=== PATIENT | female | born 2005 | race Two or more races ===

== ENCOUNTER 2024-11-09 10:25 | Outpatient (CLI) | payer OTHER | END 2024-11-09 10:27 | disposition home or self-care (01) | LOC: PRENATAL 10:25 | PROVIDERS: ATTEND Obstetrics & Gynecology Maternal & Fetal Medicine | DX: O36.80X0 Pregnancy with inconclusive fetal viability, not applicable or unspecified (principal); Z36.82 Encounter for antenatal screening for nuchal translucency; O34.30 Maternal care for cervical incompetence, unspecified trimester; Z3A.13 13 weeks gestation of pregnancy ==

== ENCOUNTER 2024-12-20 08:07 | Outpatient (CLI) | payer OTHER | END 2024-12-20 08:09 | disposition home or self-care (01) | LOC: PRENATAL 08:07 | PROVIDERS: ATTEND Obstetrics & Gynecology Maternal & Fetal Medicine | DX: O44.00 Complete placenta previa NOS or without hemorrhage, unspecified trimester (principal); Z3A.20 20 weeks gestation of pregnancy ==

== ENCOUNTER → 2025-03-14 11:01 | Outpatient (CLI) | payer OTHER | END | disposition home or self-care (01) | LOC: PRENATAL 11:01 | PROVIDERS: ATTEND Obstetrics & Gynecology Maternal & Fetal Medicine | DX: O26.849 Uterine size-date discrepancy, unspecified trimester (principal); O36.8199 Decreased fetal movements, unspecified trimester, other fetus; Z3A.32 32 weeks gestation of pregnancy ==

== ENCOUNTER 2025-05-05 05:25 | Inpatient (IN) | payer OTHER ==
[~2025-05-05] VITALS: Ht 157.5 cm; Wt 83.0 kg
[2025-05-05] VITALS (10 sets, daily range): BP systolic 108–127; BP diastolic 60–76
[2025-05-05] MEDS ORDERED: PRENATAL TABLE1 EAC1 PO (05:37)
[2025-05-05] MEDS ORDERED: MORPHINE SULFATE 4 MG/ML VIAL IV STA ×2 (08:13→16:17)
[2025-05-05] MEDS ORDERED: RINGERS SOLUTION,LACTATED 1,000 ML IV SCH (08:15)
[2025-05-05 08:55] LABS: BASO % 0.2 % (0.1-1.2); EOS # 0.07 (0.04-0.54); EOS % 0.9 % (0.7-7.0); HEMATOCRIT 36.9 % (34.1-44.9); HEMOGLOBIN 12.6 g/dL (11.2-15.7); LYMPH # 0.75 (1.18-3.74); LYMPH % 9.1 % (19.3-53.1); MEAN CORPUSCULAR HEMOGLOBIN 26.6 pg (25.6-32.2); MONO # 0.77 (0.24-0.82); MONO % 9.4 % (4.7-12.5); NEUT # 6.53 (1.56-6.13); NEUT % 79.7 % (34.0-71.1); PLATELET COUNT 228 K/uL (163-369); RED BLOOD COUNT 4.73 M/uL (3.93-5.22); RED CELL DISTRIBUTION WIDTH 14.8 % (11.6-14.4); URINE APPEARANCE Clear; URINE BILIRRUBIN Small (NEGATIVE); URINE BLOOD Negative; URINE COLOR Dark Yellow; URINE GLUCOSE Negative (NEGATIVE); URINE KETONE Trace (NEGATIVE); URINE LEUKOCYTE Trace; URINE NITRATE Negative; URINE PROTEIN Trace (NEGATIVE)
[2025-05-05 08:59] LABS: URINE BACTERIA 3178.6 uL (0.0-1933); URINE RBC 5.5 uL (0.0-20.8); URINE WBC 33.2 uL (0.0-23.2)
[2025-05-05 09:14] LABS: URINE CAST 0.44 uL (0.0-1.40)
[2025-05-05 09:27] LABS: BILIRUBIN TOTAL 1.4 mg/dL (0.3-1.2); CREATININE SERUM 0.68 mg/dL (0.55-1.02); GFR 109.22; GLOBULINA 3.9 G/DL (2.4-3.5); POTASSIUM 3.81 mEq/L (3.5-5.1); TOTAL PROTEIN 6.9 gm/dL (6.4-8.2)
[2025-05-05 09:35] LABS: INR 0.94; PARTIAL THROMBOPLASTIN TIME 26.6 SECONDS (22.0-34.0); PROTHROMBIN TIME 10.3 SECONDS (9.0-11.5)
[2025-05-05] MEDS ORDERED: OXYTOCIN 20 UNITS/500ML RL PIGGYBAG IV ONE (15:38)
[2025-05-05] MEDS ORDERED: OXYTOCIN 500 ML IV SCH (16:00)
[2025-05-05] MEDS ORDERED: ERYTHROMYCIN BASE OPHT 1GM EACH TUBE OP ONE ×2 (18:25→19:15)
[2025-05-05] MEDS ORDERED: CHLORHEXIDINE GLUCONATE 120 ML BOTTLE TOP ONE ×2 (18:26→19:15)
[2025-05-05] MEDS ORDERED: LIDOCAINE HCL 1% 10ML VIAL ONE (18:26)
[2025-05-05] MEDS ORDERED: OXYTOCIN 20 UNITS/1000ML RL PIGGYBAG IV ONE (18:26)
[2025-05-05] MEDS ORDERED: IBUprofen 800 MG TABLET PO PRN (19:15)
[2025-05-05] MEDS ORDERED: ACETAMINOPHEN 500 MG GEL..CAP PO PRN (19:15)
[2025-05-05] MEDS ORDERED: LIDOCAINE HCL 1% 10ML VIAL IJ ONE (19:15)
[2025-05-06 01:00] VITALS: BP 118/75
[2025-05-06 02:13] LABS: BASO % 0.2 % (0.1-1.2); EOS # 0.01 (0.04-0.54); EOS % 0.1 % (0.7-7.0); HEMATOCRIT 32.1 % (34.1-44.9); HEMOGLOBIN 11.2 g/dL (11.2-15.7); LYMPH % 6.7 % (19.3-53.1); MEAN CORPUSCULAR HEMOGLOBIN 26.6 pg (25.6-32.2); MONO % 7.3 % (4.7-12.5); NEUT # 12.74 (1.56-6.13); PLATELET COUNT 226 K/uL (163-369); RED BLOOD COUNT 4.21 M/uL (3.93-5.22); RED CELL DISTRIBUTION WIDTH 14.6 % (11.6-14.4)
[2025-05-06 08:00] VITALS: BP 107/64
[2025-05-06] MEDS ORDERED: HYDROCORTISONE 2.5% 30 GM TUBE RECTAL SCH (09:00)
[2025-05-06] MEDS ORDERED: BENZOCAINE/MENTHOL 90 ML BOTTLE TOP SCH (09:00)
[2025-05-06 15:55] VITALS: BP 110/67
[2025-05-06 23:55] VITALS: BP 112/72
[2025-05-07 09:08] VITALS: BP 122/82
[2025-05-07 16:00] VITALS: BP 111/70
== END 2025-05-07 19:35 | disposition home or self-care (01) | DRG 807 ==
LOC: OBS/DEL 05:25 → OB/GYN 08:07 → LDR 08:07 → OB/GYN 19:27
PROVIDERS: Specialist; ADMIT Obstetrics & Gynecology; ATTEND Obstetrics & Gynecology
PROC: 10E0XZZ Delivery of Products of Conception, External Approach (ICD-10-PCS; principal; 2025-05-05)
PROC: 0UQG7ZZ Repair Vagina, Via Natural or Artificial Opening (ICD-10-PCS; 2025-05-05)
PROC: 4A1HXCZ Monitoring of Products of Conception, Cardiac Rate, External Approach (ICD-10-PCS; 2025-05-05)
DX: O71.4 Obstetric high vaginal laceration alone (principal); Z37.0 Single live birth; Z3A.39 39 weeks gestation of pregnancy